=== PATIENT | female | born 1995 | race Caucasian/White ===

== ENCOUNTER → 2020-10-14 | Outpatient (CLI) | payer OTHER ==
[~2020-10-14] MED LIST: ADVAIR 250-501 EACH INH; ADVAIR 500-501 EACH INH; AFRIN15 ML; ALBUTEROL1.25 MG/3 INH; AUGMENTIN 875-1 EACH PO; BREO ELLIPTA 21 EACH INH; CLARITIN10 M2 PO; CLARITIN10 MG PO; DOXYCYCLINE HY100 M2 PO; GLUCOPHAGE500 MG PO; HYDROCODON-ACE1 EAC2 PO; IPRAT-ALBUT 0.5-3 ML NEB; LEXAPRO10 MG PO; OMEPRAZOLE20 M1 PO; PREDNISONE 10 M10 MG PO; PREDNISONE 50 M50 MG PO; PREDNISONE PACK PO; PREDNISONE20 MG PO; SINGULAIR10 MG PO; SPIRONOLACTONE50 MG PO; VENTOLIN HFA 66.7 GM INH; [UNRECOGNIZED DRUG - OTHER] PO
== END ==
LOC: KOH-I 10-10 15:30
DX: J32.9 Chronic sinusitis, unspecified (principal); J32.0 Chronic maxillary sinusitis
CPT/HCPCS: 70486

== ENCOUNTER → 2020-11-03 | Day surgery (SDC) | payer OTHER ==
[2020-11-03 08:10] LABS: BUN/CREATININE RATIO 14 (0-10)
== END | disposition home or self-care (01) ==
LOC: OR 06:50
PROVIDERS: Otolaryngology
DX: J32.9 Chronic sinusitis, unspecified (principal); J34.2 Deviated nasal septum; J34.3 Hypertrophy of nasal turbinates; J45.909 Unspecified asthma, uncomplicated; K21.9 Gastro-esophageal reflux disease without esophagitis; G47.30 Sleep apnea, unspecified; E28.2 Polycystic ovarian syndrome; F41.9 Anxiety disorder, unspecified; F32.9 Major depressive disorder, single episode, unspecified; Z87.891 Personal history of nicotine dependence; Z88.0 Allergy status to penicillin; Z88.1 Allergy status to other antibiotic agents; Z79.2 Long term (current) use of antibiotics; Z79.84 Long term (current) use of oral hypoglycemic drugs; Z79.899 Other long term (current) drug therapy
CPT/HCPCS: 36415; 80048; 84703; 94664; C1726; J0171; J1100; J2001; J2250; J2405; J2704; J2710; J3010; J7030; J7120

== ENCOUNTER → 2021-03-09 | Outpatient (CLI) | payer OTHER | LOC: EXRD 14:10 | DX: J45.909 Unspecified asthma, uncomplicated (principal) | CPT/HCPCS: 94010 ==

== ENCOUNTER 2022-02-19 16:57 | Emergency (ER) | payer OTHER ==
[2022-02-19] MEDS ORDERED: BACTRIM DS TAB1 EACH PO (17:53)
== END 2022-02-19 18:00 | disposition home or self-care (01) ==
LOC: ER1 16:57
DX: S61.012A Laceration without foreign body of left thumb without damage to nail, initial encounter (principal); F17.210 Nicotine dependence, cigarettes, uncomplicated; W26.0XXA Contact with knife, initial encounter; Y92.009 Unspecified place in unspecified non-institutional (private) residence as the place of occurrence of the external cause; Z23 Encounter for immunization
CPT/HCPCS: 12001; 90471; 90715; 99282